=== PATIENT | male | born 1990 ===

== ENCOUNTER 2017-07-01 09:29 | Emergency (ER) | payer OTHER ==
[2017-07-01 09:33] VITALS: BP 144/96; PULSE 85; RESP 16; TEMP 98.6; O2SAT 99
[2017-07-01 09:34] VITALS: BMI 28.7
--- NOTE | 2017-07-01 09:49 | ED PDOC ---
HPI: Dental Pain/Injury Time Seen by Provider: 07/01/17 09:35 Chief Complaint (Nursing): Dental Pain Chief Complaint (Provider): Left Upper Lip Swelling and Left Sided Facial Swelling History Per: Patient History/Exam Limitations: no limitations Onset/Duration Of Symptoms: Days (x2 days) Current Symptoms Are (Timing): Still Present Additional Complaint(s): Phu Witt, a 27 year old male, presents to the Ed with left upper lip swelling and left sided facial swelling x2 days. The patient states that she is currently being seen by a dentist for a dental infection and started on amoxicillin and aleve. denies tightness in throat, shortness of breath, rash, itching. PMD: Lorri Jack Past Medical History Reviewed: Historical Data, Nursing Documentation, Vital Signs Vital Signs: Last Vital Signs Temp 98.6 F 07/01/17 09:40 Pulse 85 07/01/17 09:40 Resp 16 07/01/17 09:40 BP 144/96 H 07/01/17 09:40 Pulse Ox 99 07/01/17 09:40 - Medical History PMH: No Chronic Diseases - Surgical History Surgical History: No Surg Hx - Family History Family History: States: Unknown Family Hx - Social History Current smoker - smoking cessation education provided: No Ex-Smoker (has not smoked in the last 12 months): No Alcohol: Social Drugs: Denies - Home Medications Home Medications: Ambulatory Orders Medication Instructions Recorded Clindamycin [Cleocin] 300 mg PO Q8 #30 cap 07/01/17 DiphenhydrAMINE [Benadryl] 50 mg PO Q8 #20 cap 07/01/17 traMADol [Ultram] 50 mg PO Q8 #10 tab 07/01/17 - Allergies Allergies/Adverse Reactions: Allergies Allergy/AdvReac Type Severity Reaction Status Date / Time No Known Allergies Allergy Verified 07/01/17 09:40 Review of Systems ROS Statement: Except As Marked, All Systems Reviewed And Found Negative Constitutional: Positive for: Other (Left sided facial swelling and left upper lip swelling.) ENT: Positive for: Other (denies tightness in throat) Respiratory: Negative for: Shortness of Breath Skin: Negative for: Rash (no rash or itching) Physical Exam - Reviewed Nursing Documentation Reviewed: Yes Vital Signs Reviewed: Yes - Physical Exam Appears: Positive for: Non-toxic (left sided upper lip swelling and left sided facial swelling extending to left infraorbital area; no tenderness; no erythema ; no rashes.), No Acute Distress Head Exam: Positive for: ATRAUMATIC, NORMAL INSPECTION, NORMOCEPHALIC Skin: Positive for: Normal Color, Warm, Dry. Negative for: Rash Eye Exam: Positive for: Normal appearance, EOMI, PERRL. Negative for: Nystagmus ENT: Positive for: Other (mild swelling frontal upper gingiva no abscesses or tooth decay noted;No throat swelling.) Cardiovascular/Chest: Positive for: Regular Rate, Rhythm, Chest Non Tender. Negative for: Tachycardia Respiratory: Positive for: Normal Breath Sounds (Lungs clear bilaterally). Negative for: Stridor, Wheezing, Respiratory Distress Neurologic/Psych: Positive for: Alert, Oriented, Gait - ECG O2 Sat by Pulse Oximetry: 99 (RA) Pulse Ox Interpretation: Normal Medical Decision Making Medical Decision Makin Initial Impression Dental Infection vs Allergic reaction Initial Plan: * Reevaluation Scribe Attestation Documented by Shwetha Gtuierrez acting as a scribe for Naren Jimenez MD. Provider Attestation All medical record entries made by the Scribe were at my direction and personally dictated by me. I have reviewed the chart and agree that the record accurately reflects my personal performance of the history, physical exam, medical decision making, and the department course for this patient. I have also personally directed, reviewed, and agree with the discharge instructions and disposition Disposition - Clinical Impression Clinical Impression: Dental infection - Patient ED Disposition Is Patient to be Admitted: No Counseled Patient/Family Regarding: Studies Performed - Disposition Referrals: [facility] [Outside] Bimal Braswell DDS [Staff Provider] - Disposition: Routine/Home Disposition Time: 09:45 Condition: FAIR Prescriptions: Clindamycin [Cleocin] 300 mg PO Q8 #30 cap DiphenhydrAMINE [Benadryl] 50 mg PO Q8 #20 cap traMADol [Ultram] 50 mg PO Q8 #10 tab Instructions: Gingivostomatitis (ED) Forms: [employer] (German) - POA Present On Arrival: None
== END 2017-07-01 10:09 | disposition home or self-care (01) ==
LOC: H.ER 09:29
DX: K04.7 Periapical abscess without sinus (principal)